=== PATIENT | male | born 1935 | race Caucasian/White ===

== ENCOUNTER 2018-06-12 09:02 | Inpatient (IN) ==
[2018-06-12] MEDS ORDERED: ONDANSETRON 4 MG/2 ML VIAL IV PRN (10:56)
[2018-06-12] MEDS ORDERED: ACETAMINOPHEN 325 MG TABLET PO PRN (10:56)
[2018-06-12 11:48] LABS: Basophils % 0.4 % (0.0-0.8); Eosinophils # 0.2 10*3/uL (0.0-0.87); Eosinophils % 1.9 % (0.00-10.9); Hematocrit 37.3 VOL% (42.0-52.0); Hemoglobin 12.7 GM/DL (14.0-18.0); Immature Granulocytes % 0.5 %; Immature Granulocytes Absolute 0.04 #; Lymphocytes # 0.7 10*3/uL (1.4-4.0); Lymphocytes % 9.2 % (21.2-54.2); Mean Corpuscular Hemoglobin 28 PG (27-34); Mean Corpuscular Volume 82.3 FL (87-102); Mean Platelet Volume 11.4 FL (9.6-12.0); Monocytes # 0.8 10*3/uL (0.11-0.8); Monocytes % 10.5 % (1.7-12.7); Neutrophils % 77.5 % (38.7-73.9); Platelet Count 169 T/CUMM (130-400); Red Blood Count 4.53 MC/CUMM (3.8-5.5); Red Cell Distribution Width 22.2 % (9.3-17.3); White Blood Count 7.7 T/CUMM (4-12)
[2018-06-12 11:58] LABS: INR 1.3; Partial Thromboplastin Time 26.8 SECS (0-40)
[2018-06-12 12:08] LABS: Platelet Estimate Normal
[2018-06-12 12:09] LABS: Anisocytosis Slight; Macrocytosis 1+; Target Cells 1+
[2018-06-12 12:25] LABS: Calcium 9.8 MG/DL (8.5-10.1); Osmolality,Calculated 273.8 MOS/KG (273-304)
[2018-06-12 12:34] LABS: Bilirubin,Total 24.4 MG/DL (0.2-1.0)
[2018-06-12 16:40] LABS: Apearance,Urine Slightly Hazy (Clear); Bacteria,Urine Few /HPF (Few); Blood, Urine Negative (Negative); Glucose,Urine (UA) Negative (Negative); Ketones,Urine 5 mg/dL (Negative); Mucus,Urine Occasional /LPF (Occasional); Nitrite,Urine Positive (Negative); Protein,Urine Negative; Squamous Epithelial Cell,Urine Occasional /HPF (0-10); Urine Color Amber (Yellow); WBC,Urine 4 /HPF (0-6)
[2018-06-12 16:41] LABS: Bilirubin,Urine Moderate mg/dL (Negative)
[2018-06-12] MEDS: SODIUM CHLORIDE 0.9% 1,000 ML IV SCH (17:06)
[2018-06-12] MEDS: DOCUSATE SODIUM 100 MG CAPSULE PO SCH (22:27)
[2018-06-13] MEDS: SODIUM CHLORIDE 0.9% 1,000 ML IV SCH ×3 (00:13→20:55)
[2018-06-13 03:39] LABS: Basophils % 0.7 % (0.0-0.8); Eosinophils # 0.3 10*3/uL (0.0-0.87); Eosinophils % 4.3 % (0.00-10.9); Hematocrit 32.5 VOL% (42.0-52.0); Hemoglobin 11.1 GM/DL (14.0-18.0); Immature Granulocytes % 0.7 %; Immature Granulocytes Absolute 0.04 #; Lymphocytes # 0.8 10*3/uL (1.4-4.0); Lymphocytes % 12.8 % (21.2-54.2); Mean Corpuscular HGB Conc 34.2 GM/DL (32-36); Mean Corpuscular Hemoglobin 28 PG (27-34); Mean Corpuscular Volume 81.7 FL (87-102); Mean Platelet Volume 12.3 FL (9.6-12.0); Monocytes # 0.7 10*3/uL (0.11-0.8); Monocytes % 12.3 % (1.7-12.7); Neutrophils # 4.1 10*3/uL (1.4-7.4); Neutrophils % 69.2 % (38.7-73.9); Platelet Count 145 T/CUMM (130-400); Red Blood Count 3.98 MC/CUMM (3.8-5.5); White Blood Count 5.9 T/CUMM (4-12)
[2018-06-13 03:47] LABS: INR 1.4; PT Patient Result 15.4 SECS
[2018-06-13 04:03] LABS: Albumin 2.5 G/DL (3.4-5.0); Calcium 8.8 MG/DL (8.5-10.1); Osmolality,Calculated 277.7 MOS/KG (273-304); Potassium 3.9 MMOL/L (3.5-5.1); Total Protein 5.9 G/DL (6.4-8.3)
[2018-06-13 04:12] LABS: Bilirubin,Total 19.9 MG/DL (0.2-1.0)
[2018-06-13] MEDS ORDERED: LISINOPRIL 10 MG TABLET PO SCH (09:00)
[2018-06-13] MEDS ORDERED: fentaNYL 100 MCG/2 ML VIAL ONE ×2 (10:22→13:04)
[2018-06-13] MEDS ORDERED: MIDAZOLAM 2 MG/2 ML VIAL ONE (10:23)
[2018-06-13] MEDS ORDERED: INDOMETHACIN SUPP 50 MG SUPP RECTAL ONE (12:30)
[2018-06-13] MEDS: PANTOPRAZOLE 40 MG TABLET PO SCH (12:42)
[2018-06-13] MEDS: DOCUSATE SODIUM 100 MG CAPSULE PO SCH ×2 (12:43→21:38)
[2018-06-13] MEDS ORDERED: PROPOFOL 200 MG/20 ML VIAL IV ONE (13:04)
[2018-06-13] MEDS ORDERED: DEXAMETHASONE 4 MG/1 ML VIAL ONE (13:04)
[2018-06-13] MEDS ORDERED: LIDOCAINE 2% 5 ML VIAL ONE (13:04)
[2018-06-13] MEDS ORDERED: ONDANSETRON 4 MG/2 ML VIAL ONE (13:04)
[2018-06-13] MEDS ORDERED: GLYCOPYRROLATE 0.4 MG/2 ML VIAL ONE (13:04)
[2018-06-13] MEDS ORDERED: SUCCINYLCHOLINE 200 MG/10 ML VIAL ONE (13:04)
[2018-06-13] MEDS ORDERED: ETOMIDATE 20 MG/10 ML VIAL IV ONE (13:04)
[2018-06-13] MEDS ORDERED: ROCURONIUM 100 MG/10 ML VIAL IV ONE (13:04)
[2018-06-13] MEDS ORDERED: LACTATED RINGERS 500 ML IV ONE (14:40)
[2018-06-13] MEDS: LISINOPRIL 10 MG TABLET PO SCH (21:38)
[2018-06-14 04:36] LABS: Eosinophils % 0.2 % (0.00-10.9); Hematocrit 30.9 VOL% (42.0-52.0); Hemoglobin 10.5 GM/DL (14.0-18.0); Immature Granulocytes % 1.3 %; Immature Granulocytes Absolute 0.07 #; Lymphocytes # 0.4 10*3/uL (1.4-4.0); Lymphocytes % 7.7 % (21.2-54.2); Mean Corpuscular Hemoglobin 28 PG (27-34); Mean Corpuscular Volume 81.7 FL (87-102); Mean Platelet Volume 12.9 FL (9.6-12.0); Monocytes # 0.4 10*3/uL (0.11-0.8); Monocytes % 6.8 % (1.7-12.7); Neutrophils # 4.5 10*3/uL (1.4-7.4); Platelet Count 132 T/CUMM (130-400); Red Blood Count 3.78 MC/CUMM (3.8-5.5); Red Cell Distribution Width 22.2 % (9.3-17.3); White Blood Count 5.3 T/CUMM (4-12)
[2018-06-14 05:00] LABS: Albumin 2.2 G/DL (3.4-5.0); Calcium 9.3 MG/DL (8.5-10.1); Osmolality,Calculated 282.3 MOS/KG (273-304); Potassium 3.7 MMOL/L (3.5-5.1); Total Protein 5.4 G/DL (6.4-8.3)
[2018-06-14] MEDS: SODIUM CHLORIDE 0.9% 1,000 ML IV SCH ×2 (05:01→16:40)
[2018-06-14 05:02] LABS: Bilirubin,Total 20.1 MG/DL (0.2-1.0)
[2018-06-14] MEDS: PANTOPRAZOLE 40 MG TABLET PO SCH (08:24)
[2018-06-14] MEDS: DOCUSATE SODIUM 100 MG CAPSULE PO SCH ×3 (08:27→20:23)
[2018-06-14] MEDS: LISINOPRIL 10 MG TABLET PO SCH (20:25)
[2018-06-15] MEDS: SODIUM CHLORIDE 0.9% 1,000 ML IV SCH ×3 (00:35→17:34)
[2018-06-15 02:46] LABS: Basophils % 0.5 % (0.0-0.8); Eosinophils # 0.2 10*3/uL (0.0-0.87); Eosinophils % 3.7 % (0.00-10.9); Hematocrit 29.4 VOL% (42.0-52.0); Immature Granulocytes % 0.5 %; Immature Granulocytes Absolute 0.03 #; Lymphocytes # 0.7 10*3/uL (1.4-4.0); Lymphocytes % 11.3 % (21.2-54.2); Mean Corpuscular Hemoglobin 28 PG (27-34); Mean Corpuscular Volume 81.7 FL (87-102); Mean Platelet Volume 12.4 FL (9.6-12.0); Monocytes # 0.6 10*3/uL (0.11-0.8); Monocytes % 10.8 % (1.7-12.7); Neutrophils # 4.2 10*3/uL (1.4-7.4); Neutrophils % 73.2 % (38.7-73.9); Platelet Count 136 T/CUMM (130-400); Red Cell Distribution Width 22.9 % (9.3-17.3); White Blood Count 5.7 T/CUMM (4-12)
[2018-06-15 03:11] LABS: Albumin 2.2 G/DL (3.4-5.0); Calcium 8.5 MG/DL (8.5-10.1); Osmolality,Calculated 282.1 MOS/KG (273-304); Potassium 3.6 MMOL/L (3.5-5.1); Total Protein 5.3 G/DL (6.4-8.3)
[2018-06-15 03:16] LABS: Bilirubin,Total 17.3 MG/DL (0.2-1.0)
[2018-06-15] MEDS: DOCUSATE SODIUM 100 MG CAPSULE PO SCH ×2 (08:24→20:49)
[2018-06-15] MEDS: PANTOPRAZOLE 40 MG TABLET PO SCH (08:24)
[2018-06-15] MEDS ORDERED: LACTULOSE 20 GM/30 ML UDCUP PO PRN (09:55)
[2018-06-15] MEDS: LISINOPRIL 10 MG TABLET PO SCH (20:49)
[2018-06-16] MEDS: SODIUM CHLORIDE 0.9% 1,000 ML IV SCH (01:41)
[2018-06-16 05:38] LABS: Basophils % 0.5 % (0.0-0.8); Eosinophils # 0.3 10*3/uL (0.0-0.87); Eosinophils % 4.7 % (0.00-10.9); Hematocrit 30.3 VOL% (42.0-52.0); Hemoglobin 10.4 GM/DL (14.0-18.0); Immature Granulocytes % 0.7 %; Immature Granulocytes Absolute 0.04 #; Lymphocytes # 0.6 10*3/uL (1.4-4.0); Lymphocytes % 10.3 % (21.2-54.2); Mean Corpuscular HGB Conc 34.3 GM/DL (32-36); Mean Corpuscular Hemoglobin 28 PG (27-34); Mean Corpuscular Volume 80.8 FL (87-102); Mean Platelet Volume 12.2 FL (9.6-12.0); Monocytes # 0.7 10*3/uL (0.11-0.8); Monocytes % 11.6 % (1.7-12.7); Neutrophils # 4.3 10*3/uL (1.4-7.4); Neutrophils % 72.2 % (38.7-73.9); Platelet Count 132 T/CUMM (130-400); Red Blood Count 3.75 MC/CUMM (3.8-5.5); Red Cell Distribution Width 23.4 % (9.3-17.3); White Blood Count 5.9 T/CUMM (4-12)
[2018-06-16 06:16] LABS: Albumin 2.2 G/DL (3.4-5.0); Calcium 8.8 MG/DL (8.5-10.1); Osmolality,Calculated 277.5 MOS/KG (273-304); Potassium 3.4 MMOL/L (3.5-5.1); Total Protein 5.5 G/DL (6.4-8.3)
[2018-06-16 06:18] LABS: Bilirubin,Total 15.5 MG/DL (0.2-1.0)
[2018-06-16 07:18] LABS: Hypochromasia 1+; Microcytosis 1+; Ovalocytes Few; Schistocytes Slight; Target Cells 1+
[2018-06-16 07:19] LABS: Platelet Estimate Adequate
[2018-06-16] MEDS: PANTOPRAZOLE 40 MG TABLET PO SCH (08:36)
[2018-06-16] MEDS: DOCUSATE SODIUM 100 MG CAPSULE PO SCH (08:37)
[2018-06-16 12:49] VITALS: BP 128/80
== END 2018-06-16 16:02 | disposition home or self-care (01) | DRG 435 ==
LOC: N.ULTRA 09:02 → SUPCPDRO 10:52 → N.4E 10:52
PROVIDERS: ADMIT Internal Medicine; ATTEND Internal Medicine

== ENCOUNTER 2019-07-01 08:00 | Observation (INO) ==
[2019-07-01] MEDS ORDERED: METOPROLOL TARTRATE 5 MG/5 ML VIAL IV STA (08:29)
[2019-07-01] MEDS ORDERED: MAGNESIUM SULF RIDER 2 GM in PREMIX 1 EACH IV STA (08:29)
[2019-07-01 08:38] LABS: Basophils % 0.3 % (0.0-0.8); Eosinophils # 0.2 10*3/uL (0.0-0.87); Eosinophils % 2.6 % (0.00-10.9); Hematocrit 42.7 VOL% (42.0-52.0); Hemoglobin 13.1 GM/DL (14.0-18.0); Immature Granulocytes % 0.5 %; Immature Granulocytes Absolute 0.03 #; Lymphocytes # 1.3 10*3/uL (1.4-4.0); Lymphocytes % 20.2 % (21.2-54.2); Mean Corpuscular HGB Conc 30.7 GM/DL (32-36); Mean Corpuscular Volume 84.4 FL (87-102); Mean Platelet Volume 11.2 FL (9.6-12.0); Monocytes % 9.6 % (1.7-12.7); Neutrophils % 66.8 % (38.7-73.9); Platelet Count 205 T/CUMM (130-400); Red Blood Count 5.06 MC/CUMM (3.8-5.5); Red Cell Distribution Width 14.9 % (9.3-17.3); White Blood Count 6.5 T/CUMM (4-12)
[2019-07-01 09:02] LABS: INR 1.1; PT Patient Result 11.8 SECS (9.6-12.2); Partial Thromboplastin Time 28.2 SECS (20.8-36.0)
[2019-07-01 09:03] LABS: Apearance,Urine CLEAR (Clear); Bilirubin,Urine Negative (Negative); Blood, Urine Negative (Negative); Glucose,Urine (UA) Negative (Negative); Ketones,Urine Negative (Negative); Nitrite,Urine Negative (Negative); Protein,Urine Negative; RBC,Urine 1 /HPF (0-4); Urine Color Yellow (Yellow); Urine Specific Gravity 1.009 (1.001-1.035); Urine Urobilinogen < 2.0 EU/DL (0.2-1.0); WBC,Urine 1 /HPF (0-6)
[2019-07-01 09:04] LABS: Albumin 3.3 G/DL (3.4-5.0); Bilirubin,Total 0.4 MG/DL (0.2-1.0); Calcium 9.4 MG/DL (8.5-10.1); Osmolality,Calculated 277.5 MOS/KG (273-304); Thyroid Stimulating Hormone 1.41 uIU/ml (0.358-3.74); Total Protein 6.5 G/DL (6.4-8.3)
[2019-07-01 09:09] LABS: Barbiturates Screen,Urine Negative (Negative); Benzodiazepines Screen,Urine Negative (Negative); Cannabinoid Screen,Urine Negative (Negative); Opiate Screen,Urine Positive (Negative); Phencyclidine Screen,Urine Negative (Negative)
[2019-07-01] MEDS: APIXABAN 5 MG TABLET PO SCH ×2 (09:11→20:43)
[2019-07-01] MEDS ORDERED: ONDANSETRON 4 MG/2 ML VIAL IV PRN (11:08)
[2019-07-01] MEDS ORDERED: ACETAMINOPHEN 325 MG TABLET PO PRN (11:08)
[2019-07-01] MEDS ORDERED: ACETAMINOPHEN/CODEINE 300-30 MG TABLET PO PRN (12:01)
[2019-07-01] MEDS ORDERED: fentaNYL 50 MCG/HR PATCH TRANSDERM SCH (12:30)
[2019-07-01] MEDS: SODIUM CHLORIDE 0.9% 1,000 ML IV SCH ×2 (12:44→20:45)
[2019-07-01] MEDS ORDERED: ZALEPLON 5 MG CAPSULE PO PRN (13:52)
[2019-07-01 15:07] LABS: Troponin I < 0.015 NG/ML (0.00-0.045)
[2019-07-01] MEDS ORDERED: LIPASE PROTEASE AMYLASE PO SCH ×2 (17:00)
[2019-07-01] MEDS: DOCUSATE SODIUM 100 MG CAPSULE PO SCH (20:43)
[2019-07-01] MEDS: ACYCLOVIR 200 MG CAPSULE PO SCH (20:43)
[2019-07-01] MEDS: GABAPENTIN 300 MG CAPSULE PO SCH (20:44)
[2019-07-02] MEDS: SODIUM CHLORIDE 0.9% 1,000 ML IV SCH (03:44)
[2019-07-02 04:47] LABS: Basophils % 0.4 % (0.0-0.8); Eosinophils # 0.3 10*3/uL (0.0-0.87); Eosinophils % 4.7 % (0.00-10.9); Hematocrit 34.9 VOL% (42.0-52.0); Hemoglobin 10.5 GM/DL (14.0-18.0); Immature Granulocytes % 0.4 %; Immature Granulocytes Absolute 0.02 #; Lymphocytes % 18.5 % (21.2-54.2); Mean Corpuscular HGB Conc 30.1 GM/DL (32-36); Mean Corpuscular Volume 86.4 FL (87-102); Mean Platelet Volume 11.4 FL (9.6-12.0); Monocytes % 11.8 % (1.7-12.7); Neutrophils % 64.2 % (38.7-73.9); Platelet Count 162 T/CUMM (130-400); Red Blood Count 4.04 MC/CUMM (3.8-5.5); Red Cell Distribution Width 14.9 % (9.3-17.3); White Blood Count 5.5 T/CUMM (4-12)
[2019-07-02 05:11] LABS: Blood Urea Nitrogen 19 MG/DL (7-18); Calcium 9.1 MG/DL (8.5-10.1); Estimated Glom Filtration Rate 94 ML/MIN; Glucose 87 MG/DL (74-106); Osmolality,Calculated 279.4 MOS/KG (273-304); Troponin I < 0.015 NG/ML (0.00-0.045)
[2019-07-02] MEDS: METOPROLOL SUCCINATE XL 25 MG TABLET PO SCH ×2 (07:03→09:19)
[2019-07-02 08:19] VITALS: BP 118/60
[2019-07-02] MEDS ORDERED: MAGNESIUM OXIDE 400 MG TABLET PO SCH (09:00)
[2019-07-02] MEDS ORDERED: lisinopriL 10 MG TABLET PO SCH (09:00)
[2019-07-02] MEDS ORDERED: PANTOPRAZOLE 40 MG TABLET PO SCH (09:00)
[2019-07-02] MEDS ORDERED: APIXABAN 5 MG TABLET PO SCH (09:00)
[2019-07-02] MEDS ORDERED: MULTIVITAMIN (CENTRUM) TABLET PO SCH (09:00)
[2019-07-02] MEDS: DOCUSATE SODIUM 100 MG CAPSULE PO SCH (09:18)
[2019-07-02] MEDS: GABAPENTIN 300 MG CAPSULE PO SCH (09:19)
[2019-07-02] MEDS: ACYCLOVIR 200 MG CAPSULE PO SCH (09:20)
== END 2019-07-02 11:03 | disposition home or self-care (01) ==
LOC: N.EDINP 08:00 → N.ED 08:00 → N.EDINP 11:02 → N.TELES 11:07
PROVIDERS: ADMIT Internal Medicine; ATTEND Internal Medicine